=== PATIENT | female | born 1940 | race Caucasian/White ===

== ENCOUNTER 2017-09-23 11:57 | Emergency (ER) | payer OTHER ==
[~2017-09-23] VITALS: Ht 149.9 cm; Wt 51.3 kg
[~2017-09-23 11:57] MED LIST: ADULT LOW DOSE81 M1 PO; ALLERGY EYE5 ML BOTH EYES; AMOX TR-K CLV1 EAC4 PO; ASPIR 8181 M1 PO; ATIVAN0.5 MG PO; AVELOX400 MG PO; BACTRIM,SEPT1 TABLET PO; CALCIUM 600 +1 EA12 PO; CALCIUM 600 +1 EAC7 PO; CARDIZEM CD,CA180 MG PO; CARDIZEM CD,CA240 MG PO; CARDIZEM90 MG PO; CARTIA XT180 MG PO; CEFTIN250 MG PO; CEFTIN500 MG PO; COLACE100 MG PO; DELTASONE50 MG PO; DILTIAZEM ER90 MG PO; DOCUSATE SODIU100 MG PO; ENDOCET 5-3251 EACH PO; FISH OIL SOFTG1 EAC2 PO; IMURAN50 MG PO; LEVAQUIN750 MG PO; LEVOFLOXACIN500 MG PO; LIDOCAINE700 MG TD; LO-DOSE ASPIRIN81 M1 PO; LORATADINE10 M2 PO; LORAZEPAM0.5 MG PO; LYRICA75 MG PO; MELOXICAM15 MG PO; MILK OF MAGNESI10 ML PO; MOBIC15 MG PO; MUCINEX600 MG PO; MYCOSTATIN 100,60 ML PO; NAPROSYN500 MG PO; OMEGA RED PO; OMEPRAZOLE40 M1 PO; OS-CAL 500+D C1 EAC1 PO; OXYCODONE-APAP1 EAC6 PO; OXYCODONE-APAP1 EACH PO; OXYCONTIN10 MG PO; PERCOCET 10/1 TABLET PO; PERCOCET 7.51 TABLET PO; POLYMYXIN B-TMP10 ML; PRAVACHOL20 MG PO; PRAVASTATIN SOD20 MG PO; PREDNISONE10 M2 PO; PREDNISONE10 MG PO; PREDNISONE5 MG PO; PRENATAL TABLE1 EAC3 PO; PRILOSEC20 MG PO; PRILOSEC40 MG PO; PROAIR HFA8.5 GM IH; PROTONIX40 MG PO; ROXICODONE5 MG PO; TIZANIDINE HCL2 MG PO; VALIUM5 MG PO; VITAMIN D31000 UNI2 PO; VITAMIN D31000 UNIT PO; VITAMIN D5000 UNIT PO; VITAMIN E1000 UNI1 PO; VITAMIN E200 UNI5 PO; VITAMIN E400 UNIT PO; XOPENEX0.63 MG/3 IH
[2017-09-23 12:25] LABS: HEMATOCRIT 44.3 % (36.0-46.0); HEMOGLOBIN 14.9 G/DL (11.9-15.5); MCH 31.4 PG (29.0-34.0); MCHC 33.6 G/DL (30.0-36.0); MCV 93.5 FL (83-99); PLATELET COUNT 336 K/uL (156-360); RBC DIS.WIDTH-CV 15.2 % (11.8-14.6); RBC DIS.WIDTH-SD 52.3 % (39-53); RED BLOOD COUNT 4.74 M/uL (3.80-5.20); WHITE BLOOD COUNT 14.1 K/uL (4.1-10.2)
[2017-09-23 12:33] LABS: CHLORIDE 104 mEq/L (99-109); POTASSIUM 3.6 mEq/L (3.7-5.4); SODIUM 138 mEq/L (136-147)
[2017-09-23 12:34] LABS: GLUCOSE 93 mg/dL (70-99)
[2017-09-23 12:38] LABS: CREATININE 0.9 mg/dL (0.6-1.3); GFR ESTIMATE (CALCULATED) > 59 mL/min/
[2017-09-23 12:39] LABS: UREA NITROGEN (BUN) 25 mg/dL (9-23)
[2017-09-23 12:45] LABS: TROP-I INTERPRETATION NEGATIVE; TROPONIN-I 0.02 ng/mL (0.0-0.30)
[2017-09-23] MEDS ORDERED: BYSTOLIC5 MG PO (14:01)
[2017-09-23 15:03] LABS: APPEARANCE SL.HAZY ((CLEAR)); BILIRUBIN NEGATIVE; BLOOD NEGATIVE; COLOR AMBER ((YELLOW)); GLUCOSE (STRIP) NEGATIVE; KETONES NEGATIVE; LEUKOCYTES TRACE; NITRITE NEGATIVE; PROTEIN (STRIP) 30; SPECIFIC GRAVITY 1.029 (1.000-1.030); UROBILINOGEN 0.2 MG/DL (0.2-1.0)
[2017-09-23 15:11] LABS: BACTERIA RARE /HPF; CALCIUM OXALATE CRYSTALS 3+ /HPF; EPITHELIAL CELLS RARE /HPF; HYALINE CASTS 30-40 /LPF; MUCUS 1+ /LPF; RED BLOOD CELLS 0-5 /HPF (0-5); UCUL ADDED? YES
[2017-09-23] MEDS ORDERED: ALBUTEROL2.5 MG/3 M IH (16:25)
[2017-09-23] MEDS ORDERED: PROVENTIL HFA6.7 GM IH (16:25)
[2017-09-23 16:54] VITALS: BP 114/59
== END 2017-09-23 16:47 | disposition home or self-care (01) ==
LOC: EME 11:57
PROVIDERS: Emergency Medicine
DX: E86.0 Dehydration (principal); R06.00 Dyspnea, unspecified; J84.10 Pulmonary fibrosis, unspecified; E78.5 Hyperlipidemia, unspecified; I10 Essential (primary) hypertension; K21.9 Gastro-esophageal reflux disease without esophagitis; F41.9 Anxiety disorder, unspecified; Z79.82 Long term (current) use of aspirin
CPT/HCPCS: 71046; 71250; 80048; 81003; 83605; 84484; 85027; 87040; 87086; 93005; 99281; 99285; J7030